=== PATIENT | male | born 1940 | race Caucasian/White ===

== ENCOUNTER 2021-06-08 14:10 | Inpatient (IN) ==
[2021-06-08 14:51] LABS: Basophils % 0.1 %; Hematocrit 41.9 % (37.5-50.1); Hemoglobin 14.7 g/dL (12.9-16.9); Immature Granulocytes % 1.3 % (0-4); Lymphocytes # 0.6 K/mcL (0.6-4.6); Lymphocytes % 5.3 %; Mean Corpuscular HGB Conc 35.1 g/dL (31.6-35.5); Mean Corpuscular Hemoglobin 35.1 pg (28.0-33.3); Monocytes # 0.3 K/mcL (0.0-1.3); Monocytes % 2.9 %; Neutrophils # 9.8 K/mcL (1.6-8.9); Platelet Count 233 K/mcL (140-400); Red Blood Count 4.19 M/mcL (4.19-5.50); Red Cell Distribution Width 13.1 % (11.5-14.5); Segmented Neutrophils % 90.4 %; White Blood Count 10.8 K/mcL (4.3-11.1)
[2021-06-08 15:05] LABS: BUN/Creatinine Ratio 21 (6-26); Blood Urea Nitrogen 19 mg/dL (8-23); Calcium 8.8 mg/dL (8.6-10.3); Carbon Dioxide 24 mEq/L (23-29); Chloride 107 mEq/L (98-107); Glucose 135 mg/dL (70-105); Osmolality,Calculated 290 (280-300); Potassium 3.9 mEq/L (3.5-5.1); Sodium 138 mEq/L (136-145); eGFR For African Americans > 60 (> 60); eGFR For Non-African Americans > 60 (> 60)
[2021-06-08 15:06] LABS: Troponin I 0.03 ng/mL (< 0.04)
[2021-06-08 15:23] LABS: Alanine Aminotransferase 39 Units/L (7-52); Albumin 3.3 g/dL (3.5-5.7); Alkaline Phosphatase 49 Units/L (34-104); Aspartate Amino Transferase 55 Units/L (13-39); Bilirubin,Direct 0.1 mg/dL (0.0-0.2); Bilirubin,Indirect 0.3 mg/dL (0.0-1.0); Bilirubin,Total 0.4 mg/dL (0.3-1.0); Globulin 3.2 g/dL (2.4-3.5); Total Protein 6.5 g/dL (6.4-8.9)
[2021-06-08] MEDS ORDERED: Acetaminophen 325 MG TABLET PO PRN (15:28)
[2021-06-08] MEDS ORDERED: Remdesivir 200 MG in 0.9 % Sodium Chloride 100 ML IVPB ONE (15:32)
[2021-06-08] MEDS ORDERED: Ondansetron 4 MG/2 ML VIAL IVP PRN (15:34)
[2021-06-08] MEDS ORDERED: Naloxone 0.4 MG/ML INJ IVP PRN (15:34)
[2021-06-08] MEDS: Ipratropium 1 PUFF INHALER IH SCH ×3 (18:15→23:45)
[2021-06-09] MEDS: Ipratropium 1 PUFF INHALER IH SCH ×6 (04:04→23:56)
[2021-06-09] MEDS: *HR* Enoxaparin 40 MG/0.4 ML SYRINGE SQ SCH (06:00)
[2021-06-09 08:24] LABS: Alanine Aminotransferase 53 Units/L (7-52); Albumin 3.1 g/dL (3.5-5.7); Albumin/Globulin Ratio 1.1 (1.1-2.2); Alkaline Phosphatase 47 Units/L (34-104); Aspartate Amino Transferase 53 Units/L (13-39); BUN/Creatinine Ratio 27 (6-26); Bilirubin,Total 0.4 mg/dL (0.3-1.0); Blood Urea Nitrogen 22 mg/dL (8-23); Calcium 8.5 mg/dL (8.6-10.3); Carbon Dioxide 24 mEq/L (23-29); Chloride 107 mEq/L (98-107); Globulin 2.8 g/dL (2.4-3.5); Glucose 120 mg/dL (70-105); Osmolality,Calculated 293 (280-300); Potassium 3.9 mEq/L (3.5-5.1); Sodium 139 mEq/L (136-145); Total Protein 5.9 g/dL (6.4-8.9); eGFR For African Americans > 60 (> 60); eGFR For Non-African Americans > 60 (> 60)
[2021-06-09 08:30] LABS: Basophils % 0.1 %; Hematocrit 39.8 % (37.5-50.1); Hemoglobin 13.9 g/dL (12.9-16.9); Immature Granulocytes % 0.8 % (0-4); Lymphocytes # 0.7 K/mcL (0.6-4.6); Lymphocytes % 8.7 %; Mean Corpuscular HGB Conc 34.9 g/dL (31.6-35.5); Mean Corpuscular Hemoglobin 35.3 pg (28.0-33.3); Mean Platelet Volume 11.3 fL (9.4-12.4); Monocytes # 0.6 K/mcL (0.0-1.3); Monocytes % 6.6 %; Neutrophils # 6.9 K/mcL (1.6-8.9); Platelet Count 219 K/mcL (140-400); Red Blood Count 3.94 M/mcL (4.19-5.50); Red Cell Distribution Width 12.9 % (11.5-14.5); Segmented Neutrophils % 83.8 %; White Blood Count 8.3 K/mcL (4.3-11.1)
[2021-06-09] MEDS ORDERED: Loratadine 10 MG TABLET PO PRN (11:04)
[2021-06-09] MEDS ORDERED: traZODone 50 MG TABLET PO PRN (11:25)
[2021-06-09] MEDS: Saliva Stimulant 44.3ml BOTTLE PO SCH ×7 (13:56→23:48)
[2021-06-09] MEDS: Saline Nasal Spray 44 ML BOTTLE NS SCH ×4 (14:00→23:48)
[2021-06-09] MEDS: Artificial Tears SOLN 15 ML BOTTLE BOTH EYES SCH ×3 (14:00→20:33)
[2021-06-09] MEDS: Remdesivir 100 MG in 0.9 % Sodium Chloride 100 ML IVPB SCH (14:35)
[2021-06-09] MEDS: Furosemide 20 MG/2 ML VIAL IVP SCH (17:33)
[2021-06-09] MEDS: Chlorhexidine Rinse 15 ML MOUTHWASH MM SCH (20:40)
[2021-06-10] MEDS: Saliva Stimulant 44.3ml BOTTLE PO SCH ×6 (00:37→12:53)
[2021-06-10] MEDS: Ipratropium 1 PUFF INHALER IH SCH ×4 (04:25→15:11)
[2021-06-10] MEDS: Saline Nasal Spray 44 ML BOTTLE NS SCH ×3 (05:00→15:41)
[2021-06-10] MEDS: *HR* Enoxaparin 40 MG/0.4 ML SYRINGE SQ SCH (05:13)
[2021-06-10 06:28] LABS: Basophils % 0.2 %; Hematocrit 39.3 % (37.5-50.1); Hemoglobin 13.4 g/dL (12.9-16.9); Immature Granulocytes % 0.7 % (0-4); Lymphocytes # 1.3 K/mcL (0.6-4.6); Lymphocytes % 10.9 %; Mean Corpuscular HGB Conc 34.1 g/dL (31.6-35.5); Mean Corpuscular Hemoglobin 34.2 pg (28.0-33.3); Mean Corpuscular Volume 100.3 fL (83.0-100.0); Mean Platelet Volume 10.9 fL (9.4-12.4); Monocytes % 8.5 %; Neutrophils # 9.8 K/mcL (1.6-8.9); Platelet Count 247 K/mcL (140-400); Red Blood Count 3.92 M/mcL (4.19-5.50); Red Cell Distribution Width 13.1 % (11.5-14.5); Segmented Neutrophils % 79.7 %; White Blood Count 12.2 K/mcL (4.3-11.1)
[2021-06-10 06:47] LABS: Alanine Aminotransferase 60 Units/L (7-52); Albumin 2.9 g/dL (3.5-5.7); Albumin/Globulin Ratio 1.1 (1.1-2.2); Alkaline Phosphatase 44 Units/L (34-104); Aspartate Amino Transferase 42 Units/L (13-39); BUN/Creatinine Ratio 29 (6-26); Bilirubin,Total 0.4 mg/dL (0.3-1.0); Blood Urea Nitrogen 22 mg/dL (8-23); Calcium 8.3 mg/dL (8.6-10.3); Carbon Dioxide 25 mEq/L (23-29); Chloride 109 mEq/L (98-107); Globulin 2.6 g/dL (2.4-3.5); Glucose 105 mg/dL (70-105); Lactate Dehydrogenase 297 Units/L (140-271); Osmolality,Calculated 296 (280-300); Phosphorous 3.8 mg/dL (2.7-4.5); Potassium 3.7 mEq/L (3.5-5.1); Sodium 141 mEq/L (136-145); Total Protein 5.5 g/dL (6.4-8.9); eGFR For African Americans > 60 (> 60); eGFR For Non-African Americans > 60 (> 60)
[2021-06-10 07:04] LABS: Ferritin 1089 ng/mL (20-250)
[2021-06-10] MEDS: Artificial Tears SOLN 15 ML BOTTLE BOTH EYES SCH ×2 (08:45→15:41)
[2021-06-10] MEDS: Chlorhexidine Rinse 15 ML MOUTHWASH MM SCH (08:45)
[2021-06-10 08:48] LABS: C-Reactive Protein 29 mg/L (Less than 10)
[2021-06-10] MEDS: Furosemide 20 MG/2 ML VIAL IVP SCH (08:51)
[2021-06-10] MEDS ORDERED: amLODIPine 5 MG TABLET PO SCH (09:00)
[2021-06-10] MEDS ORDERED: Aspirin Enteric Coated 81 MG Tablet PO SCH (09:00)
[2021-06-10] MEDS ORDERED: Metoprolol XL (24 HR) Succ 50 MG TAB.ER.24H PO SCH (09:00)
[2021-06-10] MEDS ORDERED: Cholecalciferol (D-3) 1,000 UNIT (25MCG) TABLET PO SCH (09:00)
[2021-06-10] MEDS ORDERED: Multivit/Ca/Min/Fe/FA 1 TAB TABLET PO SCH (09:00)
[2021-06-10 15:14] VITALS: O2SAT 92
[2021-06-10] MEDS: Remdesivir 100 MG in 0.9 % Sodium Chloride 100 ML IVPB SCH (15:37)
[2021-06-10 16:31] VITALS: BP 145/71; PULSE 66; TEMP 98.2
== END 2021-06-10 17:53 | disposition home or self-care (01) | DRG 177 ==
LOC: 2NENU 14:10 → EMEROOARM 14:10 → 2NENU 17:44 → SUATTDRO 21:21
PROVIDERS: ADMIT Family Medicine; ATTEND Internal Medicine

== ENCOUNTER 2021-06-14 13:37 | Inpatient (IN) ==
[2021-06-14] MEDS ORDERED: Isovue-370 500 ML BOTTLE IVP ONE (13:55)
[2021-06-14 14:29] LABS: Basophils % 0.1 %; Eosinophils % 0.1 %; Hematocrit 40.1 % (37.5-50.1); Lymphocytes # 0.4 K/mcL (0.6-4.6); Lymphocytes % 2.4 %; Mean Corpuscular HGB Conc 34.9 g/dL (31.6-35.5); Mean Corpuscular Hemoglobin 34.7 pg (28.0-33.3); Mean Corpuscular Volume 99.5 fL (83.0-100.0); Monocytes # 0.7 K/mcL (0.0-1.3); Neutrophils # 13.1 K/mcL (1.6-8.9); Platelet Count 281 K/mcL (140-400); Red Blood Count 4.03 M/mcL (4.19-5.50); Red Cell Distribution Width 12.4 % (11.5-14.5); Segmented Neutrophils % 91.4 %; White Blood Count 14.3 K/mcL (4.3-11.1)
[2021-06-14 14:39] LABS: INR 1.1; Prothrombin Time 11.9 Seconds (9.4-12.1)
[2021-06-14 14:56] LABS: Alanine Aminotransferase 34 Units/L (7-52); Albumin 2.8 g/dL (3.5-5.7); Albumin/Globulin Ratio 0.9 (1.1-2.2); Alkaline Phosphatase 60 Units/L (34-104); Aspartate Amino Transferase 22 Units/L (13-39); BUN/Creatinine Ratio 23 (6-26); Bilirubin,Direct 0.1 mg/dL (0.0-0.2); Bilirubin,Indirect 0.4 mg/dL (0.0-1.0); Bilirubin,Total 0.5 mg/dL (0.3-1.0); Blood Urea Nitrogen 20 mg/dL (8-23); Calcium 8.4 mg/dL (8.6-10.3); Carbon Dioxide 24 mEq/L (23-29); Chloride 106 mEq/L (98-107); Globulin 3.1 g/dL (2.4-3.5); Glucose 162 mg/dL (70-105); Osmolality,Calculated 292 (280-300); Potassium 4.2 mEq/L (3.5-5.1); Sodium 138 mEq/L (136-145); Total Protein 5.9 g/dL (6.4-8.9); Troponin I < 0.03 ng/mL (< 0.04); eGFR For African Americans > 60 (> 60); eGFR For Non-African Americans > 60 (> 60)
[2021-06-14 15:13] LABS: ABG Base Excess -1 mEq/L (-2 to 3); ABG HCO3 23 mEq/L (21-27); ABG Oxygen Saturation 96 % (95-98); ABG PCO2 34 mmHg (35-45); ABG PH 7.44 pH Units (7.32-7.45); ABG PO2 76 mmHg (85-104); ABG TCO2 24 mEq/L (20-26)
[2021-06-14] MEDS ORDERED: *HR* Heparin 5,000 UNIT/ML VIAL IVP ONE (16:21)
[2021-06-14] MEDS ORDERED: *HR* Heparin 5,000 UNIT/ML VIAL IVP PRN ×2 (16:21)
[2021-06-14] MEDS: Heparin 25,000UNIT/250ML 1/2NS 25,000 UNIT/250 ML IV.SOLN IVC SCH (16:51)
[2021-06-14] MEDS ORDERED: Acetaminophen 325 MG TABLET PO PRN (16:58)
[2021-06-14] MEDS ORDERED: Naloxone 0.4 MG/ML INJ IVP PRN (16:58)
[2021-06-14] MEDS ORDERED: Ondansetron 4 MG/2 ML VIAL IVP PRN (16:58)
[2021-06-14] MEDS ORDERED: *HR* HYDROcodone/Acet 5/325 mg TABLET PO PRN (16:58)
[2021-06-14 17:13] LABS: INR 1.1; Prothrombin Time 11.9 Seconds (9.4-12.1)
[2021-06-14 17:16] LABS: Heparin anti-factor XA UFH < 0.04 IU/mL (0.30-0.70)
[2021-06-14] MEDS ORDERED: Perflutren Lipid Microsphere 1.3 ML in 0.9 % Sodium Chloride 8.7 ML IVP PRN (18:58)
[2021-06-14] MEDS: Saliva Stimulant 44.3ml BOTTLE PO SCH ×3 (19:26→22:28)
[2021-06-14] MEDS: Saline Nasal Spray 44 ML BOTTLE NS SCH ×2 (19:26→20:41)
[2021-06-14] MEDS: Artificial Tears SOLN 15 ML BOTTLE BOTH EYES SCH (19:26)
[2021-06-14] MEDS: Benzonatate 100 MG CAPSULE PO SCH (19:30)
[2021-06-14] MEDS: Chlorhexidine Rinse 15 ML MOUTHWASH MM SCH (19:30)
[2021-06-14] MEDS: Ipratropium 1 PUFF INHALER IH SCH (19:46)
[2021-06-15] MEDS: Saliva Stimulant 44.3ml BOTTLE PO SCH ×9 (00:35→20:45)
[2021-06-15] MEDS: Saline Nasal Spray 44 ML BOTTLE NS SCH ×5 (00:35→15:23)
[2021-06-15] MEDS: Ipratropium 1 PUFF INHALER IH SCH ×4 (04:12→20:26)
[2021-06-15 06:49] LABS: Basophils % 0.2 %; Eosinophils # 0.1 K/mcL (0.0-0.6); Eosinophils % 0.7 %; Hematocrit 38.2 % (37.5-50.1); Hemoglobin 12.9 g/dL (12.9-16.9); Immature Granulocytes % 1.1 % (0-4); Lymphocytes # 1.2 K/mcL (0.6-4.6); Lymphocytes % 10.8 %; Mean Corpuscular HGB Conc 33.8 g/dL (31.6-35.5); Mean Corpuscular Hemoglobin 33.8 pg (28.0-33.3); Mean Platelet Volume 11.2 fL (9.4-12.4); Monocytes # 0.9 K/mcL (0.0-1.3); Monocytes % 7.7 %; Neutrophils # 8.9 K/mcL (1.6-8.9); Platelet Count 261 K/mcL (140-400); Red Blood Count 3.82 M/mcL (4.19-5.50); Red Cell Distribution Width 12.6 % (11.5-14.5); Segmented Neutrophils % 79.5 %; White Blood Count 11.1 K/mcL (4.3-11.1)
[2021-06-15 07:15] LABS: Alanine Aminotransferase 28 Units/L (7-52); Albumin 2.6 g/dL (3.5-5.7); Alkaline Phosphatase 50 Units/L (34-104); Aspartate Amino Transferase 19 Units/L (13-39); BUN/Creatinine Ratio 23 (6-26); Bilirubin,Total 0.5 mg/dL (0.3-1.0); Blood Urea Nitrogen 17 mg/dL (8-23); Calcium 8.1 mg/dL (8.6-10.3); Carbon Dioxide 26 mEq/L (23-29); Chloride 108 mEq/L (98-107); Globulin 2.5 g/dL (2.4-3.5); Glucose 78 mg/dL (70-105); Lactate Dehydrogenase 245 Units/L (140-271); Osmolality,Calculated 290 (280-300); Phosphorous 3.7 mg/dL (2.7-4.5); Potassium 3.9 mEq/L (3.5-5.1); Sodium 140 mEq/L (136-145); Total Protein 5.1 g/dL (6.4-8.9); eGFR For African Americans > 60 (> 60); eGFR For Non-African Americans > 60 (> 60)
[2021-06-15 07:28] LABS: Ferritin 1003 ng/mL (20-250)
[2021-06-15] MEDS ORDERED: Metoprolol XL (24 HR) Succ 50 MG TAB.ER.24H PO SCH (09:00)
[2021-06-15] MEDS: amLODIPine 5 MG TABLET PO SCH (09:27)
[2021-06-15] MEDS: Cholecalciferol (D-3) 1,000 UNIT (25MCG) TABLET PO SCH (09:27)
[2021-06-15] MEDS: Chlorhexidine Rinse 15 ML MOUTHWASH MM SCH ×2 (09:27→20:44)
[2021-06-15] MEDS: Benzonatate 100 MG CAPSULE PO SCH ×3 (09:27→20:44)
[2021-06-15] MEDS: Aspirin Enteric Coated 81 MG Tablet PO SCH (09:28)
[2021-06-15] MEDS: Artificial Tears SOLN 15 ML BOTTLE BOTH EYES SCH ×2 (09:32→20:44)
[2021-06-15 09:39] LABS: C-Reactive Protein 50 mg/L (Less than 10)
[2021-06-15] MEDS: Heparin 25,000UNIT/250ML 1/2NS 25,000 UNIT/250 ML IV.SOLN IVC SCH (18:16)
[2021-06-15] MEDS: Melatonin 3 MG TABLET PO PRN (20:44)
[2021-06-16] MEDS: Ipratropium 1 PUFF INHALER IH SCH ×4 (03:56→20:05)
[2021-06-16 06:31] LABS: Basophils % 0.1 %; Eosinophils % 0.4 %; Hematocrit 37.8 % (37.5-50.1); Hemoglobin 12.9 g/dL (12.9-16.9); Immature Granulocytes % 1.6 % (0-4); Lymphocytes % 9.3 %; Mean Corpuscular HGB Conc 34.1 g/dL (31.6-35.5); Mean Corpuscular Hemoglobin 34.2 pg (28.0-33.3); Mean Corpuscular Volume 100.3 fL (83.0-100.0); Mean Platelet Volume 11.5 fL (9.4-12.4); Monocytes # 0.8 K/mcL (0.0-1.3); Monocytes % 7.6 %; Neutrophils # 8.3 K/mcL (1.6-8.9); Platelet Count 258 K/mcL (140-400); Red Blood Count 3.77 M/mcL (4.19-5.50); Red Cell Distribution Width 12.5 % (11.5-14.5); White Blood Count 10.2 K/mcL (4.3-11.1)
[2021-06-16 06:40] LABS: BUN/Creatinine Ratio 21 (6-26); Blood Urea Nitrogen 18 mg/dL (8-23); Calcium 8.2 mg/dL (8.6-10.3); Carbon Dioxide 26 mEq/L (23-29); Chloride 105 mEq/L (98-107); Glucose 138 mg/dL (70-105); Magnesium 1.9 mg/dL (1.6-2.6); Osmolality,Calculated 288 (280-300); Sodium 137 mEq/L (136-145); eGFR For African Americans > 60 (> 60); eGFR For Non-African Americans > 60 (> 60)
[2021-06-16] MEDS: carvediloL 6.25 MG TABLET PO SCH ×2 (09:00→21:54)
[2021-06-16] MEDS: Aspirin Enteric Coated 81 MG Tablet PO SCH (09:58)
[2021-06-16] MEDS: Cholecalciferol (D-3) 1,000 UNIT (25MCG) TABLET PO SCH (09:59)
[2021-06-16] MEDS: amLODIPine 5 MG TABLET PO SCH (09:59)
[2021-06-16] MEDS: Benzonatate 100 MG CAPSULE PO SCH ×3 (09:59→21:53)
[2021-06-16] MEDS: Chlorhexidine Rinse 15 ML MOUTHWASH MM SCH ×2 (10:00→21:53)
[2021-06-16] MEDS: Calcium Gluconate 1gm/50mL 1 GM/50 ML BAG IVPB SCH (10:15)
[2021-06-16] MEDS: Artificial Tears SOLN 15 ML BOTTLE BOTH EYES SCH ×2 (10:18→21:54)
[2021-06-16] MEDS: Saliva Stimulant 44.3ml BOTTLE PO SCH ×7 (10:30→23:39)
[2021-06-16] MEDS: Saline Nasal Spray 44 ML BOTTLE NS SCH ×7 (10:30→21:53)
[2021-06-16] MEDS: polyethylene glycoL 3350 17 GM POWD.PACK PO SCH (13:57)
[2021-06-16] MEDS: Heparin 25,000UNIT/250ML 1/2NS 25,000 UNIT/250 ML IV.SOLN IVC SCH (14:13)
[2021-06-16] MEDS: Melatonin 3 MG TABLET PO PRN (21:53)
[2021-06-16] MEDS: Apixaban 5 MG TABLET PO SCH (21:53)
[2021-06-17] MEDS: Saline Nasal Spray 44 ML BOTTLE NS SCH ×6 (03:49→21:06)
[2021-06-17] MEDS: Saliva Stimulant 44.3ml BOTTLE PO SCH ×8 (03:49→23:00)
[2021-06-17] MEDS: Ipratropium 1 PUFF INHALER IH SCH ×4 (04:07→20:18)
[2021-06-17] MEDS: Aspirin Enteric Coated 81 MG Tablet PO SCH (09:47)
[2021-06-17] MEDS: carvediloL 6.25 MG TABLET PO SCH (09:47)
[2021-06-17] MEDS: Cholecalciferol (D-3) 1,000 UNIT (25MCG) TABLET PO SCH (09:47)
[2021-06-17] MEDS: NIFEdipine XL (24 HR) 60 MG TAB.ER.24 PO SCH (09:47)
[2021-06-17] MEDS: Apixaban 5 MG TABLET PO SCH ×2 (09:47→21:06)
[2021-06-17] MEDS: Chlorhexidine Rinse 15 ML MOUTHWASH MM SCH ×2 (09:47→21:06)
[2021-06-17] MEDS: Benzonatate 100 MG CAPSULE PO SCH ×3 (09:47→21:06)
[2021-06-17] MEDS: polyethylene glycoL 3350 17 GM POWD.PACK PO SCH (09:48)
[2021-06-17 12:22] LABS: Basophils % 0.1 %; Eosinophils % 0.2 %; Hematocrit 39.2 % (37.5-50.1); Hemoglobin 13.5 g/dL (12.9-16.9); Immature Granulocytes % 1.2 % (0-4); Lymphocytes % 4.7 %; Mean Corpuscular HGB Conc 34.4 g/dL (31.6-35.5); Mean Corpuscular Hemoglobin 34.4 pg (28.0-33.3); Mean Platelet Volume 11.3 fL (9.4-12.4); Monocytes # 1.2 K/mcL (0.0-1.3); Monocytes % 7.6 %; Neutrophils # 13.6 K/mcL (1.6-8.9); Platelet Count 283 K/mcL (140-400); Red Blood Count 3.92 M/mcL (4.19-5.50); Red Cell Distribution Width 12.5 % (11.5-14.5); Segmented Neutrophils % 86.2 %
[2021-06-17 12:23] LABS: Lymphocytes # 0.7 K/mcL (0.6-4.6); White Blood Count 15.8 K/mcL (4.3-11.1)
[2021-06-17 12:32] LABS: INR 1.4
[2021-06-17 12:36] LABS: BUN/Creatinine Ratio 22 (6-26); Blood Urea Nitrogen 19 mg/dL (8-23); Calcium 8.3 mg/dL (8.6-10.3); Carbon Dioxide 26 mEq/L (23-29); Chloride 103 mEq/L (98-107); Glucose 87 mg/dL (70-105); Magnesium 1.9 mg/dL (1.6-2.6); Osmolality,Calculated 286 (280-300); Potassium 4.4 mEq/L (3.5-5.1); Sodium 137 mEq/L (136-145); eGFR For African Americans > 60 (> 60); eGFR For Non-African Americans > 60 (> 60)
[2021-06-17] MEDS: Artificial Tears SOLN 15 ML BOTTLE BOTH EYES SCH ×2 (15:14→21:06)
[2021-06-17] MEDS: Calcium Gluconate 1gm/50mL 1 GM/50 ML BAG IVPB SCH ×3 (15:15→16:59)
[2021-06-17] MEDS: Melatonin 3 MG TABLET PO PRN (22:47)
[2021-06-18] MEDS: Saline Nasal Spray 44 ML BOTTLE NS SCH ×6 (01:00→21:01)
[2021-06-18] MEDS: Saliva Stimulant 44.3ml BOTTLE PO SCH ×12 (01:00→23:50)
[2021-06-18] MEDS: Ipratropium 1 PUFF INHALER IH SCH ×4 (03:37→21:11)
[2021-06-18] MEDS: Chlorhexidine Rinse 15 ML MOUTHWASH MM SCH ×2 (10:15→21:00)
[2021-06-18] MEDS: Cholecalciferol (D-3) 1,000 UNIT (25MCG) TABLET PO SCH (10:17)
[2021-06-18] MEDS: Apixaban 5 MG TABLET PO SCH ×2 (10:17→21:01)
[2021-06-18] MEDS: Benzonatate 100 MG CAPSULE PO SCH ×3 (10:17→21:01)
[2021-06-18] MEDS: Multivit/Ca/Min/Fe/FA 1 TAB TABLET PO SCH (10:17)
[2021-06-18] MEDS: Aspirin Enteric Coated 81 MG Tablet PO SCH (10:17)
[2021-06-18] MEDS: polyethylene glycoL 3350 17 GM POWD.PACK PO SCH (10:18)
[2021-06-18 10:30] LABS: Basophils % 0.1 %; Eosinophils % 0.3 %; Hematocrit 41.9 % (37.5-50.1); Hemoglobin 14.1 g/dL (12.9-16.9); Immature Granulocytes % 1.3 % (0-4); Lymphocytes # 1.5 K/mcL (0.6-4.6); Lymphocytes % 10.8 %; Mean Corpuscular HGB Conc 33.7 g/dL (31.6-35.5); Mean Corpuscular Hemoglobin 33.7 pg (28.0-33.3); Mean Corpuscular Volume 100.2 fL (83.0-100.0); Mean Platelet Volume 11.2 fL (9.4-12.4); Monocytes # 0.9 K/mcL (0.0-1.3); Monocytes % 6.1 %; Neutrophils # 11.4 K/mcL (1.6-8.9); Platelet Count 301 K/mcL (140-400); Red Blood Count 4.18 M/mcL (4.19-5.50); Red Cell Distribution Width 12.8 % (11.5-14.5); Segmented Neutrophils % 81.4 %
[2021-06-18] MEDS: Artificial Tears SOLN 15 ML BOTTLE BOTH EYES SCH ×2 (10:39→21:01)
[2021-06-18] MEDS: NIFEdipine XL (24 HR) 60 MG TAB.ER.24 PO SCH (10:39)
[2021-06-18 10:47] LABS: BUN/Creatinine Ratio 20 (6-26); Blood Urea Nitrogen 20 mg/dL (8-23); C-Reactive Protein 17 mg/L (Less than 10); Calcium 8.9 mg/dL (8.6-10.3); Carbon Dioxide 25 mEq/L (23-29); Chloride 101 mEq/L (98-107); Glucose 141 mg/dL (70-105); Lactate Dehydrogenase 245 Units/L (140-271); Magnesium 1.9 mg/dL (1.6-2.6); Osmolality,Calculated 287 (280-300); Potassium 3.8 mEq/L (3.5-5.1); Sodium 136 mEq/L (136-145); eGFR For African Americans > 60 (> 60); eGFR For Non-African Americans > 60 (> 60)
[2021-06-18 11:05] LABS: Ferritin 1193 ng/mL (20-250)
[2021-06-18] MEDS: Melatonin 3 MG TABLET PO PRN (21:01)
[2021-06-19] MEDS: Saline Nasal Spray 44 ML BOTTLE NS SCH ×4 (00:53→13:08)
[2021-06-19] MEDS: Saliva Stimulant 44.3ml BOTTLE PO SCH ×8 (00:53→15:25)
[2021-06-19] MEDS: Ipratropium 1 PUFF INHALER IH SCH ×3 (03:42→16:12)
[2021-06-19 05:23] LABS: Hematocrit 37.7 % (37.5-50.1); Hemoglobin 13.4 g/dL (12.9-16.9); Mean Corpuscular HGB Conc 35.5 g/dL (31.6-35.5); Mean Corpuscular Hemoglobin 35.2 pg (28.0-33.3); Mean Platelet Volume 10.8 fL (9.4-12.4); Platelet Count 275 K/mcL (140-400); Red Blood Count 3.81 M/mcL (4.19-5.50); Red Cell Distribution Width 12.8 % (11.5-14.5); White Blood Count 11.9 K/mcL (4.3-11.1)
[2021-06-19 05:47] LABS: BUN/Creatinine Ratio 25 (6-26); Blood Urea Nitrogen 27 mg/dL (8-23); Calcium 8.6 mg/dL (8.6-10.3); Carbon Dioxide 28 mEq/L (23-29); Chloride 102 mEq/L (98-107); Glucose 105 mg/dL (70-105); Osmolality,Calculated 287 (280-300); Phosphorous 4.7 mg/dL (2.7-4.5); Potassium 4.6 mEq/L (3.5-5.1); Sodium 136 mEq/L (136-145); eGFR For African Americans > 60 (> 60); eGFR For Non-African Americans > 60 (> 60)
[2021-06-19] MEDS: Cholecalciferol (D-3) 1,000 UNIT (25MCG) TABLET PO SCH (07:45)
[2021-06-19] MEDS: Apixaban 5 MG TABLET PO SCH (07:45)
[2021-06-19] MEDS: Multivit/Ca/Min/Fe/FA 1 TAB TABLET PO SCH (07:45)
[2021-06-19] MEDS: Benzonatate 100 MG CAPSULE PO SCH ×2 (07:45→15:29)
[2021-06-19] MEDS: Aspirin Enteric Coated 81 MG Tablet PO SCH (07:46)
[2021-06-19] MEDS: NIFEdipine XL (24 HR) 60 MG TAB.ER.24 PO SCH (07:46)
[2021-06-19] MEDS: Chlorhexidine Rinse 15 ML MOUTHWASH MM SCH (07:47)
[2021-06-19] MEDS: polyethylene glycoL 3350 17 GM POWD.PACK PO SCH (07:47)
[2021-06-19] MEDS: Artificial Tears SOLN 15 ML BOTTLE BOTH EYES SCH (07:48)
[2021-06-19 11:35] VITALS: TEMP 97.8
[2021-06-19 15:55] VITALS: BP 118/70; PULSE 86
[2021-06-19 16:16] VITALS: O2SAT 93
== END 2021-06-19 16:41 | disposition home health service (06) | DRG 871 ==
LOC: SUATTDRO → EMEROOARM 13:37 → SUATTDRO 18:23 → 3NENU 18:23
PROVIDERS: ADMIT Student in an Organized Health Care Education/Training Program; ATTEND Internal Medicine